=== PATIENT | female | born 1960 | race Caucasian/White ===

== ENCOUNTER 2021-10-29 12:01 | Emergency (ER) | payer BC | END 2021-10-29 19:00 | disposition left against medical advice (07) | LOC: ER1 12:01 | DX: Z53.21 Procedure and treatment not carried out due to patient leaving prior to being seen by health care provider (principal) ==

== ENCOUNTER → 2022-05-23 | Outpatient (CLI) | payer BC | LOC: NM 05-19 09:00 | DX: R10.13 Epigastric pain (principal) | CPT/HCPCS: 78227; A9537 ==